=== PATIENT | male | born 1965 | race African-American/Black ===

== ENCOUNTER 2022-02-21 19:30 | Emergency (ER) | payer MEDICARE, MEDICAID ==
[2022-02-21] MEDS ORDERED: Sodium Chloride 0.9% 500 ML ONE (20:08)
[2022-02-21 20:26] LABS: ALT (SGPT) 51 U/L (8-55); AST (SGOT) 134 U/L (5-34); Albumin 3.3 g/dL (3.5-5.0); Alkaline Phosphatase 147 U/L (40-110); Anion Gap 19 mmol/L (10-20); BUN (Urea Nitrogen) 11 mg/dL (8.4-25.7); Bilirubin, Total 5.7 mg/dL (0.2-1.2); Calc. Creatinine Clearance 0 mL/min (70-130); Calcium 9.2 mg/dL (7.8-10.44); Carbon Dioxide 23 mmol/L (22-29); Chloride 93 mmol/L (98-107); Estimated GFR 101; Globulin 6.9 g/dL (2.4-3.5); Glucose 106 mg/dL (70-105); Protein, Total 10.2 g/dL (6.0-8.3); Sodium 132 mmol/L (136-145)
[2022-02-21 20:29] LABS: Potassium 2.7 mmol/L (3.5-5.1)
[2022-02-21] MEDS ORDERED: Potassium Chloride 10 MEQ/100 ML PREMIX BAG ONE (20:36)
[2022-02-21] MEDS ORDERED: Potassium Chloride 20 MEQ TAB ONE (20:36)
[2022-02-21 20:42] LABS: #Basophils 0.1 thou/uL (0.0-0.2); #Eosinphils 0.1 thou/uL (0.0-0.7); #Lymphocytes 1.8 thou/uL (1.20-3.40); #Monocytes 1.3 thou/uL (0.11-0.59); #Neutrophils 5.8 thou/uL (1.40-6.50); %Basophils 1.2 % (0.0-1.0); %Eosinophils 1.2 % (0.0-10.0); %Lymphocytes 19.7 % (21.0-51.0); %Monocytes 14.3 % (0.0-10.0); %Neutrophils 63.5 % (42.0-75.0); Mean Corpuscular HGB CONC 29.7 g/dL (32.0-36.0); Mean Corpuscular Hemoglobin 24.6 pg (27.0-31.0); Mean Corpuscular Volume 82.6 fL (78.0-98.0); Mean Platelet Volume 8.4 fL (7.4-10.4); Platelet Count 116 thou/uL (130-400); RBC Distribution Width 15.8 % (11.5-14.5); Red Blood Cell (RBC) Count 4.88 mill/uL (4.70-6.10); White Blood Cell (WBC) Count 9.1 thou/uL (4.8-10.8)
[2022-02-21 20:43] LABS: Platelet Morphology Comment Appears Decreased; RBC Morphology Normal
[2022-02-21 22:44] LABS: SARS-CoV-2 NAA Rapid Test Not Detected (NotDetected)
[2022-02-22 06:19] LABS: Anion Gap 14 mmol/L (10-20); BUN (Urea Nitrogen) 8 mg/dL (8.4-25.7); Calc. Creatinine Clearance 0 mL/min (70-130); Calcium 8.7 mg/dL (7.8-10.44); Carbon Dioxide 24 mmol/L (22-29); Chloride 100 mmol/L (98-107); Estimated GFR 108; Glucose 103 mg/dL (70-105); Potassium 3.2 mmol/L (3.5-5.1); Sodium 135 mmol/L (136-145)
[2022-02-22] MEDS ORDERED: Potassium Chloride 20 MEQ TAB ONE (06:56)
== END 2022-02-22 08:40 | disposition home or self-care (01) ==
LOC: NAV ERS 19:30
DX: E87.6 Hypokalemia (principal); K70.9 Alcoholic liver disease, unspecified; F10.129 Alcohol abuse with intoxication, unspecified; Z20.822 Contact with and (suspected) exposure to COVID-19; I10 Essential (primary) hypertension; F17.210 Nicotine dependence, cigarettes, uncomplicated; Z79.899 Other long term (current) drug therapy
CPT/HCPCS: 80048; 80053; 80307; 85025; 93005; 96365; J3480; J7030; U0002

== ENCOUNTER 2022-05-15 11:25 | Emergency (ER) | payer MEDICARE, MEDICAID ==
[~2022-05-15 11:25] MED LIST: Iopamidol 370 76% 100 ML VIAL ONE
[2022-05-15 13:01] LABS: #Basophils 0.2 thou/uL (0.0-0.2); #Eosinphils 0.1 thou/uL (0.0-0.7); #Monocytes 1.6 thou/uL (0.11-0.59); %Basophils 1.5 % (0.0-1.0); %Eosinophils 0.5 % (0.0-10.0); %Lymphocytes 14.5 % (21.0-51.0); %Monocytes 11.3 % (0.0-10.0); %Neutrophils 72.2 % (42.0-75.0); Hemoglobin 8.1 g/dL (14.0-18.0); Mean Corpuscular HGB CONC 30.8 g/dL (32.0-36.0); Mean Corpuscular Hemoglobin 26.1 pg (27.0-31.0); Mean Corpuscular Volume 84.7 fL (78.0-98.0); Mean Platelet Volume 7.8 fL (7.4-10.4); Platelet Count 113 thou/uL (130-400); RBC Distribution Width 15.1 % (11.5-14.5); White Blood Cell (WBC) Count 13.9 thou/uL (4.8-10.8)
[2022-05-15] MEDS ORDERED: Acetaminophen 500 MG TAB ONE (13:05)
[2022-05-15 13:10] LABS: ALT (SGPT) 28 U/L (8-55); AST (SGOT) 91 U/L (5-34); Albumin 2.9 g/dL (3.5-5.0); Alcohol 102 mg/dL (Less than 10); Alkaline Phosphatase 118 U/L (40-110); Anion Gap 25 mmol/L (10-20); BUN (Urea Nitrogen) 9 mg/dL (8.4-25.7); Bilirubin, Total 7.3 mg/dL (0.2-1.2); Calc. Creatinine Clearance 0 mL/min (70-130); Carbon Dioxide 21 mmol/L (22-29); Chloride 93 mmol/L (98-107); Estimated GFR 107; Globulin 6.1 g/dL (2.4-3.5); Glucose 107 mg/dL (70-105); Potassium 3.1 mmol/L (3.5-5.1); Sodium 136 mmol/L (136-145)
[2022-05-15 13:27] LABS: CKMB 1.1 ng/mL (0-6.6)
== END 2022-05-15 11:38 | disposition home or self-care (01) ==
LOC: NAV ERS 11:25
DX: M79.81 Nontraumatic hematoma of soft tissue (principal); F10.20 Alcohol dependence, uncomplicated; I10 Essential (primary) hypertension; F17.210 Nicotine dependence, cigarettes, uncomplicated; Z79.899 Other long term (current) drug therapy
CPT/HCPCS: 71270; 74177; 80053; 80307; 82553; 84484; 85025; 93005

== ENCOUNTER 2022-05-18 10:16 | Emergency (ER) | payer MEDICARE, MEDICAID ==
[2022-05-18 11:31] LABS: ALT (SGPT) 42 U/L (8-55); AST (SGOT) 121 U/L (5-34); Albumin 3.2 g/dL (3.5-5.0); Alkaline Phosphatase 102 U/L (40-110); Anion Gap 25 mmol/L (10-20); BUN (Urea Nitrogen) 30 mg/dL (8.4-25.7); Bilirubin, Total 16.5 mg/dL (0.2-1.2); Calc. Creatinine Clearance 0 mL/min (70-130); Calcium 8.4 mg/dL (7.8-10.44); Carbon Dioxide 22 mmol/L (22-29); Chloride 90 mmol/L (98-107); Estimated GFR 81; Globulin 5.8 g/dL (2.4-3.5); Glucose 121 mg/dL (70-105); Sodium 135 mmol/L (136-145)
[2022-05-18 11:32] LABS: Bilirubin Large (Negative); Blood, Urine Negative (Negative); Clarity Clear (Clear); Glucose, Urine (Dipstick) 100 mg/dL (Negative); Ketone, Urine 40 mg/dL (Negative); Leukocyte Negative (Negative); Nitrite Negative (Negative); Protein, Urine (Dipstick) Negative (Neg-Trace); Specific Gravity, Urine 1.015 (1.005-1.030); Urobilinogen > or = 8.0 mg/dL (Less than 2)
[2022-05-18 11:42] LABS: INR-International Normal Ratio 1.6; Prothrombin Time 19.3 sec (12.0-14.7)
[2022-05-18 11:43] LABS: PTT 33.8 sec (22.9-36.1)
[2022-05-18 11:47] LABS: CKMB 3.2 ng/mL (0-6.6)
[2022-05-18 11:59] LABS: #Basophils 0.1 thou/uL (0.0-0.2); #Lymphocytes 1.3 thou/uL (1.20-3.40); #Monocytes 0.9 thou/uL (0.11-0.59); %Basophils 0.3 % (0.0-1.0); %Eosinophils 0.4 % (0.0-10.0); %Lymphocytes 28.2 % (21.0-51.0); %Monocytes 4.2 % (0.0-10.0); %Neutrophils 66.9 % (42.0-75.0); Hemoglobin 5.5 g/dL (14.0-18.0); Mean Corpuscular HGB CONC 31.6 g/dL (32.0-36.0); Mean Corpuscular Hemoglobin 27.4 pg (27.0-31.0); Mean Corpuscular Volume 86.6 fL (78.0-98.0); Platelet Count 51 thou/uL (130-400); Red Blood Cell (RBC) Count 2.07 mill/uL (4.70-6.10); White Blood Cell (WBC) Count 4.9 thou/uL (4.8-10.8)
[2022-05-18 12:03] LABS: D-Dimer Test Greater than 20.00 *mcg/mL (0.27-0.43)
[2022-05-18 12:13] LABS: Potassium 2.4 mmol/L (3.5-5.1)
[2022-05-18 12:16] LABS: Bilirubin, Direct 7.8 mg/dL (0.1-0.3)
[2022-05-18] MEDS ORDERED: Pot Chloride/Pot Bicarb/Cit Ac 25 mEq Effervescent Tablet ONE (12:29)
[2022-05-18] MEDS ORDERED: NS 0.9% w/ 20 MEQ KCL 1,000 ML ONE (12:39)
[2022-05-18 17:42] LABS: HBCM Index 0.07 S/CO (0-0.79); HBSAg Index 0.39 S/CO (0-0.99); Hep A IgM AB Non-Reactive (NonReactive); Hep A IgM S/CO 0.15 S/CO (0-0.79); Hep B Surf Ag Non-Reactive S/CO (NonReactive); Hep C IgG Ab Non-Reactive (NonReactive); Hep C Index 0.72 S/CO (0-0.79); Hepatitis B Core IgM Abs Non-Reactive (NonReactive)
== END 2022-05-18 13:50 | disposition short-term general hospital (02) ==
LOC: NAV ERS 10:16
DX: S20.211A Contusion of right front wall of thorax, initial encounter (principal); E80.6 Other disorders of bilirubin metabolism; D64.9 Anemia, unspecified; I10 Essential (primary) hypertension; F17.210 Nicotine dependence, cigarettes, uncomplicated; Z79.899 Other long term (current) drug therapy; W19.XXXA Unspecified fall, initial encounter
CPT/HCPCS: 71045; 71260; 74177; 80053; 80074; 80307; 81003; 82248; 82553; 84484; 85025; 85379; 85610; 85730; 86850; 86880; 86900; 86901; 93005; 94760; 96365; J3480

== ENCOUNTER 2022-05-26 18:03 | Emergency (ER) | payer OTHER, MEDICARE, MEDICAID ==
[2022-05-26 18:59] LABS: #Basophils 0.2 thou/uL (0.0-0.2); #Eosinphils 0.2 thou/uL (0.0-0.7); #Lymphocytes 2.9 thou/uL (1.20-3.40); #Monocytes 2.3 thou/uL (0.11-0.59); #Neutrophils 12.6 thou/uL (1.40-6.50); %Basophils 1.3 % (0.0-1.0); %Eosinophils 0.9 % (0.0-10.0); %Lymphocytes 15.8 % (21.0-51.0); %Monocytes 12.8 % (0.0-10.0); %Neutrophils 69.3 % (42.0-75.0); Hemoglobin 7.6 g/dL (14.0-18.0); Mean Corpuscular HGB CONC 30.8 g/dL (32.0-36.0); Mean Corpuscular Volume 94.3 fl (78.0-98.0); Mean Platelet Volume 6.8 fL (7.4-10.4); Platelet Count 151 thou/uL (130-400); RBC Distribution Width 23.5 % (11.5-14.5); White Blood Cell (WBC) Count 18.3 thou/uL (4.8-10.8)
[2022-05-26 19:00] LABS: INR-International Normal Ratio 1.6; Prothrombin Time 19.1 sec (12.0-14.7)
[2022-05-26 19:01] LABS: PTT 33.6 sec (22.9-36.1)
[2022-05-26 19:08] LABS: ALT (SGPT) 35 U/L (8-55); AST (SGOT) 104 U/L (5-34); Albumin 2.5 g/dL (3.5-5.0); Alkaline Phosphatase 140 U/L (40-110); Anion Gap 18 mmol/L (10-20); BUN (Urea Nitrogen) 7 mg/dL (8.4-25.7); Bilirubin, Total 19.2 mg/dL (0.2-1.2); Calc. Creatinine Clearance 0 mL/min (70-130); Calcium 8.2 mg/dL (7.8-10.44); Carbon Dioxide 21 mmol/L (22-29); Chloride 97 mmol/L (98-107); Estimated GFR 108; Globulin 6.4 g/dL (2.4-3.5); Glucose 100 mg/dL (70-105); Potassium 3.5 mmol/L (3.5-5.1); Protein, Total 8.9 g/dL (6.0-8.3); Sodium 132 mmol/L (136-145)
== END 2022-05-27 00:05 | disposition short-term general hospital (02) ==
LOC: NAV ERS 18:03
DX: S30.1XXA Contusion of abdominal wall, initial encounter (principal); I10 Essential (primary) hypertension; F17.210 Nicotine dependence, cigarettes, uncomplicated; F17.220 Nicotine dependence, chewing tobacco, uncomplicated; Z79.01 Long term (current) use of anticoagulants; Z79.899 Other long term (current) drug therapy; W01.0XXA Fall on same level from slipping, tripping and stumbling without subsequent striking against object, initial encounter
CPT/HCPCS: 71260; 74177; 80053; 85025; 85610; 85730; 93005; Q9967